=== PATIENT | female | born 1995 | race African-American/Black ===

== ENCOUNTER 2020-10-03 13:52 | Emergency (ER) | payer OTHER ==
[~2020-10-03] VITALS: Ht 162.6 cm; Wt 68.0 kg
[2020-10-03 15:42] VITALS: BP 111/64
== END 2020-10-03 19:49 | disposition home or self-care (01) ==
LOC: ER 13:52
DX: S01.81XA Laceration without foreign body of other part of head, initial encounter (principal); S02.5XXA Fracture of tooth (traumatic), initial encounter for closed fracture; Z91.040 Latex allergy status; W01.0XXA Fall on same level from slipping, tripping and stumbling without subsequent striking against object, initial encounter; Y92.89 Other specified places as the place of occurrence of the external cause; Y93.89 Activity, other specified; Y99.0 Civilian activity done for income or pay

== ENCOUNTER 2020-10-08 17:29 | Emergency (ER) | payer OTHER ==
[~2020-10-08] VITALS: Ht 162.6 cm; Wt 68.0 kg
[2020-10-08 17:33] VITALS: BP 135/78
== END 2020-10-08 18:32 | disposition home or self-care (01) ==
LOC: ER 17:29
DX: S01.81XD Laceration without foreign body of other part of head, subsequent encounter (principal); Z91.040 Latex allergy status; X58.XXXD Exposure to other specified factors, subsequent encounter